=== PATIENT | male | born 1930 | race Caucasian/White ===

== ENCOUNTER 2016-10-20 10:54 | Emergency (ER) | payer MEDICARE, OTHER ==
[2016-10-20 11:28] LABS: BASOPHIL 0.1 % (0-2); HCT 40.6 % (42.0-52.0); HGB 13.3 g/dl (13.2-18.0); LYMPHOCYTE 25.3 % (15-48); MCH 29.8 pg (25.0-31.0); MCHC 32.8 g/dL (32.0-36.0); MPV 12.1 fL (6.0-9.5); NEUTROPHIL 64.6 % (41-80); PLT 181 K/uL (150-400); RBC 4.46 M/uL (4.70-6.00); RDW 13.9 % (11.5-14.0); WBC 6.7 K/uL (4.0-10.5)
[2016-10-20 11:33] LABS: INR 1.08 (0.9-1.2); PROTHROMBIN TIME 13.1 SECONDS (11.4-13.2); PTT 30.8 SECONDS (24.3-32.1)
[2016-10-20 11:46] LABS: POTASSIUM 4.1 mmol/L (3.5-5.1)
== END 2016-10-20 12:40 | disposition home or self-care (01) ==
LOC: FER 10:54 → EDSTATUS 10:55 → FER 12:40 → FIS 15:15
PROVIDERS: Emergency Medicine
DX: I71.3 Abdominal aortic aneurysm, ruptured (principal); Z98.890 Other specified postprocedural states
CPT/HCPCS: 36415; 71010; 80048; 85025; 85610; 85730; 86850; 86900; 86901; 93005; Q9967

== ENCOUNTER 2020-12-12 13:30 | Emergency (ER) | payer MEDICARE, OTHER ==
[2020-12-12] MEDS ORDERED: VALACYCLOVIR1000 MG PO (14:04)
== END 2020-12-12 14:15 | disposition home or self-care (01) ==
LOC: FER 13:30
DX: B02.9 Zoster without complications (principal); Z88.0 Allergy status to penicillin
CPT/HCPCS: 99282

== ENCOUNTER 2021-03-03 12:25 | Inpatient (IN) | payer MEDICARE, OTHER ==
[~2021-03-03] VITALS: Ht 170.2 cm; Wt 57.6 kg
[~2021-03-03 12:25] MED LIST: VALACYCLOVIR1000 MG PO
[2021-03-03 13:18] LABS: BASOPHIL 0.2 % (0-2); EOSINOPHIL 0.1 % (0-7); HCT 43.9 % (42.0-52.0); HGB 15.2 g/dl (13.2-18.0); MCH 30.5 pg (25.0-31.0); MCHC 34.6 g/dL (32.0-36.0); MONOCYTE 3.2 % (0-12); MPV 12.3 fL (6.0-9.5); NEUTROPHIL 87.8 % (41-80); NRBC 0; PLT 181 K/uL (150-400); RBC 4.99 M/uL (4.70-6.00); RDW 13.3 % (11.5-14.0); WBC 9.8 K/uL (4.0-10.5)
[2021-03-03 13:37] LABS: LACTIC ACID 2.9 mmol/L (0.4-1.9)
[2021-03-03 13:44] LABS: CREATININE 1.28 mg/dL (0.67-1.17); POTASSIUM 3.5 mmol/L (3.5-5.1)
[2021-03-03 13:45] LABS: BILIRUBIN - TOTAL 1.7 mg/dL (0.2-1.0); GLOBULIN (CALCULATION) 4.4 g/dL; TOTAL PROTEIN 7.4 g/dL (6.4-8.2)
[2021-03-03 14:19] LABS: INFLUENZA A NAA NEGATIVE (NEGATIVE)
[2021-03-03 14:48] LABS: CORONAVIRUS 2019 SARS-COV-2 POSITIVE (NEGATIVE)
[2021-03-03 16:13] LABS: BILIRUBIN 1+ mg/dL (NEGATIVE); BLOOD TRACE-INTACT Ery/uL (NEGATIVE); CLARITY CLEAR (CLEAR); COLOR YELLOW (YELLOW); GLUCOSE (U) NORMAL (NORMAL); LEUKOCYTES NEGATIVE Leu/uL (NEGATIVE); NITRITE NEGATIVE (NEGATIVE); PROTEIN 1+ mg/dL (NEGATIVE)
[2021-03-03 16:20] LABS: BACTERIA TRACE; SQUAMOUS EPITHELIAL CELLS RARE; URINARY RBC RARE; URINARY WBC RARE
[2021-03-03 16:21] LABS: MUCOUS TRACE
[2021-03-03 16:22] LABS: AMORPHOUS URATES CRYSTALS MODERATE; GRANULAR CASTS TRACE
[2021-03-04 08:27] LABS: ALBUMIN 2.3 g/dL (3.4-5.0); BILIRUBIN - TOTAL 1.3 mg/dL (0.2-1.0); BUN/CREAT RATIO (CALC) 38.9 RATIO; CREATININE 0.9 mg/dL (0.67-1.17); GLOBULIN (CALCULATION) 3.9 g/dL; POTASSIUM 3.9 mmol/L (3.5-5.1); TOTAL PROTEIN 6.2 g/dL (6.4-8.2)
[2021-03-04 10:43] LABS: BASOPHIL 0.1 % (0-2); EOSINOPHIL 0 % (0-7); HCT 40.9 % (42.0-52.0); HGB 14.4 g/dl (13.2-18.0); LYMPHOCYTE 3.7 % (15-48); MCH 30.6 pg (25.0-31.0); MCHC 35.2 g/dL (32.0-36.0); MONOCYTE 2.9 % (0-12); MPV 12.3 fL (6.0-9.5); NEUTROPHIL 92.8 % (41-80); NRBC 0; PLT 185 K/uL (150-400); RDW 13.3 % (11.5-14.0)
[2021-03-04 10:46] LABS: WBC 16.7 K/uL (4.0-10.5)
--- NOTE | 2021-03-06 05:59 | NUR ---
0430- RESP ON UNIT PATIENT OXYGEN STATS 88, OXYGEN INCREASED TO 15 LITERS VIA OXIMIZER.
[2021-03-06 07:01] LABS: BASOPHIL 0.1 % (0-2); EOSINOPHIL 0 % (0-7); HCT 39.2 % (42.0-52.0); HGB 13.6 g/dl (13.2-18.0); LYMPHOCYTE 9.7 % (15-48); MCH 30.4 pg (25.0-31.0); MCHC 34.7 g/dL (32.0-36.0); MCV 87.5 fL (78.0-100.0); MONOCYTE 1.2 % (0-12); MPV 12.3 fL (6.0-9.5); NEUTROPHIL 88.4 % (41-80); NRBC 0; PLT 165 K/uL (150-400); RBC 4.48 M/uL (4.70-6.00); RDW 13.5 % (11.5-14.0)
[2021-03-06 07:19] LABS: WBC 8.7 K/uL (4.0-10.5)
[2021-03-06 07:53] LABS: BUN/CREAT RATIO (CALC) 44.3 RATIO; CREATININE 0.88 mg/dL (0.67-1.17); POTASSIUM 3.7 mmol/L (3.5-5.1)
--- NOTE | 2021-03-06 16:04 | NUR ---
INFORMED DAUGHTER CRYSTAL OF TRANSFER TO TCU AND PATIENT'S CONDITION
[2021-03-08 06:01] LABS: BASOPHIL 0.2 % (0-2); EOSINOPHIL 0 % (0-7); HCT 39.3 % (42.0-52.0); HGB 13.6 g/dl (13.2-18.0); LYMPHOCYTE 9.2 % (15-48); MCH 30.2 pg (25.0-31.0); MCHC 34.6 g/dL (32.0-36.0); MCV 87.3 fL (78.0-100.0); MPV 12.8 fL (6.0-9.5); NEUTROPHIL 86.4 % (41-80); NRBC 0; PLT 246 K/uL (150-400); RDW 13.7 % (11.5-14.0); WBC 12.2 K/uL (4.0-10.5)
[2021-03-08 07:23] LABS: BUN/CREAT RATIO (CALC) 42.6 RATIO; CREATININE 1.01 mg/dL (0.67-1.17); POTASSIUM 3.6 mmol/L (3.5-5.1)
[2021-03-09 05:57] LABS: BASOPHIL 0.1 % (0-2); EOSINOPHIL 0 % (0-7); HCT 40.2 % (42.0-52.0); HGB 13.8 g/dl (13.2-18.0); LYMPHOCYTE 7.4 % (15-48); MCH 30.3 pg (25.0-31.0); MCHC 34.3 g/dL (32.0-36.0); MCV 88.2 fL (78.0-100.0); MONOCYTE 4.2 % (0-12); MPV 12.4 fL (6.0-9.5); NEUTROPHIL 86.8 % (41-80); NRBC 0; PLT 303 K/uL (150-400); RBC 4.56 M/uL (4.70-6.00); WBC 11.6 K/uL (4.0-10.5)
[2021-03-09 06:55] LABS: BUN/CREAT RATIO (CALC) 38.6 RATIO; CREATININE 1.01 mg/dL (0.67-1.17)
--- NOTE | 2021-03-09 18:08 | NUR ---
1707 DR BHATIA NOTIFED THAT PATIENT WAS SITTING SQUATTED AGAINST WALL WHEN COMING INTO ROOM TO DO ROUNDS, PT HAS BEEN CONFUSED ALL DAY PULLING AT OXYGEN, PULSE OX AND HEART MONITOR. AFTER PT WAS SEEN ON FLOOR, DR BHATIA STATED THAT THE PATIENT COULD HAVE A SITTER. LADARIUS CAZARES NOTIFIED, FANTASMA RN WAS BROUGHT INTO ROOM TO SIT
[2021-03-10 05:39] LABS: BASOPHIL 0.2 % (0-2); EOSINOPHIL 0 % (0-7); HCT 38.6 % (42.0-52.0); HGB 13.1 g/dl (13.2-18.0); LYMPHOCYTE 8.3 % (15-48); MCH 30.5 pg (25.0-31.0); MCHC 33.9 g/dL (32.0-36.0); MONOCYTE 5.7 % (0-12); MPV 12.6 fL (6.0-9.5); NEUTROPHIL 83.3 % (41-80); NRBC 0; PLT 301 K/uL (150-400); RBC 4.29 M/uL (4.70-6.00); RDW 14.1 % (11.5-14.0); WBC 11.3 K/uL (4.0-10.5)
[2021-03-10 06:44] LABS: BUN/CREAT RATIO (CALC) 34.4 RATIO; C-REACTIVE PROTEIN 3.3 mg/dL (<=0.90); CREATININE 0.93 mg/dL (0.67-1.17); POTASSIUM 4.1 mmol/L (3.5-5.1)
[2021-03-10 06:56] LABS: MAGNESIUM 2.2 mg/dL (1.8-2.4)
--- NOTE | 2021-03-10 21:04 | NUR ---
HAND OFF REPORT GIVEN TO CHULA GILLESPIE
[2021-03-11 07:41] LABS: BUN/CREAT RATIO (CALC) 35.1 RATIO; C-REACTIVE PROTEIN 2.5 mg/dL (<=0.90); CREATININE 0.97 mg/dL (0.67-1.17); POTASSIUM 4.7 mmol/L (3.5-5.1)
[2021-03-11 07:46] LABS: BASOPHIL 0.1 % (0-2); EOSINOPHIL 0 % (0-7); HCT 43.3 % (42.0-52.0); HGB 14.3 g/dl (13.2-18.0); MCV 90.8 fL (78.0-100.0); MONOCYTE 2.9 % (0-12); MPV 12.3 fL (6.0-9.5); NRBC 0; PLT 354 K/uL (150-400); RBC 4.77 M/uL (4.70-6.00); RDW 14.2 % (11.5-14.0); WBC 16.8 K/uL (4.0-10.5)
--- NOTE | 2021-03-11 14:37 | NUR ---
03/11/21 Per telephone conversation with Mohini Lloyd, daughter, : Mr. Ervin lives at home with his son Golden Ervin. He did not use any DME and was able to prepare his own breakfast. Ms. Lloyd states that Mr. Ervin has some memory loss without confusion. The discharge plan is for him to return home. They chose [facility] for any DME needs and [facility] for HH needs.
[2021-03-13 06:46] LABS: BASOPHIL 0.1 % (0-2); EOSINOPHIL 0 % (0-7); HCT 42.1 % (42.0-52.0); LYMPHOCYTE 3.9 % (15-48); MCHC 33.3 g/dL (32.0-36.0); MCV 90.3 fL (78.0-100.0); MONOCYTE 1.8 % (0-12); MPV 11.8 fL (6.0-9.5); NRBC 0; PLT 301 K/uL (150-400); RBC 4.66 M/uL (4.70-6.00); RDW 14.2 % (11.5-14.0); WBC 11.4 K/uL (4.0-10.5)
[2021-03-13 06:51] LABS: NEUTROPHIL 93.8 % (41-80)
[2021-03-13 08:58] LABS: CREATININE 0.92 mg/dL (0.67-1.17); POTASSIUM 4.7 mmol/L (3.5-5.1)
[2021-03-13 08:59] LABS: C-REACTIVE PROTEIN 6.4 mg/dL (<=0.90)
[2021-03-13 11:02] LABS: MAGNESIUM 2.1 mg/dL (1.8-2.4)
[2021-03-14 06:42] LABS: POTASSIUM 4.5 mmol/L (3.5-5.1)
[2021-03-15 07:06] LABS: BUN/CREAT RATIO (CALC) 46.3 RATIO; CREATININE 1.08 mg/dL (0.67-1.17); POTASSIUM 4.9 mmol/L (3.5-5.1)
--- NOTE | 2021-03-19 14:57 | NUR ---
03/19/21 Leta Ervin, daughter of [place], [place] ([phone]) requested to know the treatment options. A return call was made after discussing with Dr. Harris. Options were discussed: home with Hospice, comfort care or continuing current treatment. At this time, family wishes to continue treatment.
[2021-03-20 06:36] LABS: BASOPHIL 0.9 % (0-2); EOSINOPHIL 1.6 % (0-7); HCT 45.3 % (42.0-52.0); HGB 14.5 g/dl (13.2-18.0); LYMPHOCYTE 10.7 % (15-48); MCH 29.8 pg (25.0-31.0); MONOCYTE 1.9 % (0-12); MPV 12.3 fL (6.0-9.5); NEUTROPHIL 84.7 % (41-80); NRBC 0; PLT 211 K/uL (150-400); RBC 4.87 M/uL (4.70-6.00); WBC 4.3 K/uL (4.0-10.5)
[2021-03-20 07:45] LABS: BUN/CREAT RATIO (CALC) 55.7 RATIO; CREATININE 0.97 mg/dL (0.67-1.17); POTASSIUM 4.5 mmol/L (3.5-5.1)
--- NOTE | 2021-03-20 14:34 | NUR ---
NOTIFIED OF [facility]. NO NEW ORDERS GIVEN
[2021-03-22 06:24] LABS: EOSINOPHIL 3.1 % (0-7); HCT 43.8 % (42.0-52.0); HGB 13.7 g/dl (13.2-18.0); LYMPHOCYTE 8.2 % (15-48); MCH 29.3 pg (25.0-31.0); MCHC 31.3 g/dL (32.0-36.0); MCV 93.8 fL (78.0-100.0); MONOCYTE 1.3 % (0-12); MPV 12.8 fL (6.0-9.5); NEUTROPHIL 85.6 % (41-80); NRBC 0.6; PLT 144 K/uL (150-400); RBC 4.67 M/uL (4.70-6.00); RDW 15.3 % (11.5-14.0)
[2021-03-22 06:28] LABS: WBC 4.8 K/uL (4.0-10.5)
[2021-03-22 07:13] LABS: ALBUMIN 1.6 g/dL (3.4-5.0); BILIRUBIN - TOTAL 1.1 mg/dL (0.2-1.0); BUN/CREAT RATIO (CALC) 46.8 RATIO; CREATININE 1.09 mg/dL (0.67-1.17); GLOBULIN (CALCULATION) 4.2 g/dL; MAGNESIUM 2.5 mg/dL (1.8-2.4); PHOSPHORUS 2.3 mg/dL (2.6-4.7); POTASSIUM 4.6 mmol/L (3.5-5.1); TOTAL PROTEIN 5.8 g/dL (6.4-8.2)
--- NOTE | 2021-03-22 10:26 | NUR ---
03/22/21 On 03/19, Golden Ervin, son reported that they are interested in taking Mr. Ervin home with with Hospice the week of 03/22. A list a sitters was provided per Mr. Ervin request. On 03/20, Golden Ervin, said the family wishes for Mr. Ervin to remain in the hospital.- Family members have been vascilating re: taking patient home with Hospice vs staying in the hospital with the current plan. Leta Brewer, daughter, , has been appointed to be the spoke's person for the family per Golden MAN. Today, Ms. Brewer, states that they wish for Mr. Ervin to remain in the hospital.
--- NOTE | 2021-03-22 18:58 | NUR ---
1654 DOBHOFF TUBE WAS PLACED IN THE RIGHT NARE BY DR. LEONARD AT THE BEDSIDE AND WAS SECURE TO THE NOSE AND CXR WAS ORDERED TO CHECK PLACEMENT BEFORE THE WIRE CAN BE REMOVED. TOLERATED THE PROCEDURE WITHOUT MUCH STRESS. 1830 CXR HAS BEEN DONE AWAITING THE RESULTS TO CHECK PLACEMENT. 1900 REPORT WAS GIVEN TO GRECIA BUCHANAN RN TO MONITOR FOR THE REPORT OF THE CXR RESULTS BEFORE REMOVING THE WIRE FOR THE TUBE.
[2021-03-23 06:27] LABS: BASOPHIL 1.4 % (0-2); HCT 43.6 % (42.0-52.0); HGB 13.9 g/dl (13.2-18.0); MCH 30.2 pg (25.0-31.0); MCHC 31.9 g/dL (32.0-36.0); MCV 94.6 fL (78.0-100.0); MONOCYTE 1.4 % (0-12); MPV 13.5 fL (6.0-9.5); NEUTROPHIL 81.8 % (41-80); NRBC 1.9; PLT 137 K/uL (150-400); RBC 4.61 M/uL (4.70-6.00); RDW 15.3 % (11.5-14.0); WBC 3.6 K/uL (4.0-10.5)
[2021-03-23 06:48] LABS: BUN/CREAT RATIO (CALC) 44.1 RATIO; CREATININE 1.11 mg/dL (0.67-1.17); MAGNESIUM 2.4 mg/dL (1.8-2.4); POTASSIUM 4.4 mmol/L (3.5-5.1)
[2021-03-24 06:43] LABS: CREATININE 1.39 mg/dL (0.67-1.17); POTASSIUM 4.7 mmol/L (3.5-5.1)
[2021-03-24 06:44] LABS: HCT 42.7 % (42.0-52.0); MCH 30.8 pg (25.0-31.0); MCHC 32.8 g/dL (32.0-36.0); MCV 93.8 fL (78.0-100.0); MPV 13.5 fL (6.0-9.5); RBC 4.55 M/uL (4.70-6.00); RDW 15.5 % (11.5-14.0); WBC 3.2 K/uL (4.0-10.5)
[2021-03-24 14:25] LABS: BUN/CREAT RATIO (CALC) 39.7 RATIO; CREATININE 1.36 mg/dL (0.67-1.17); POTASSIUM 4.4 mmol/L (3.5-5.1)
[2021-03-25 09:23] LABS: BASOPHIL 1.2 % (0-2); EOSINOPHIL 2.8 % (0-7); HCT 37.3 % (42.0-52.0); HGB 12.1 g/dl (13.2-18.0); MCH 30.6 pg (25.0-31.0); MCHC 32.4 g/dL (32.0-36.0); MCV 94.2 fL (78.0-100.0); MONOCYTE 1.2 % (0-12); NEUTROPHIL 85.9 % (41-80); NRBC 1.9; PLT 67 K/uL (150-400); RBC 3.96 M/uL (4.70-6.00); RDW 15.7 % (11.5-14.0)
[2021-03-25 09:24] LABS: WBC 4.3 K/uL (4.0-10.5)
[2021-03-25 09:39] LABS: BILIRUBIN - TOTAL 0.7 mg/dL (0.2-1.0); BUN/CREAT RATIO (CALC) 44.2 RATIO; CREATININE 1.13 mg/dL (0.67-1.17); GLOBULIN (CALCULATION) 3.3 g/dL; POTASSIUM 4.2 mmol/L (3.5-5.1); TOTAL PROTEIN 4.3 g/dL (6.4-8.2)
--- NOTE | 2021-03-25 18:09 | NUR ---
Rapid response called, this RN to room with primary RN and other H[facility] IN[facility] SPECIALIST responders. Patient not responding to painful stimuli, patient on vapotherm high flow oxygen at 100%, o2 sats upon arrival to room in the 60's, Dr. Dalal to the patients bedside and instructed to prepare for intubation. RT at head of bed, using ambu-bag to provide oxygenation. Per MD order, 10mg IVP Etomidate given, followed by 80 succ IVP. First attempt for intubation not successful. MD utilized glidescope for second intubation attempt, patient intubated at 1645 with 7.0 ET Tube, positive CO2 color change, and bilateral breath sounds noted. Called for STAT CXR. See [facility]IST protocol for more details and vital signs.
== END 2021-03-25 22:50 | disposition expired | DRG 208 ==
LOC: FER 12:25 → FMS 15:14 → FTCU 03-06 12:38 → FMS 03-10 23:08 → FTCU 03-23 21:32 → FICU 03-25 17:06
PROVIDERS: Internal Medicine; Nurse Practitioner; Nurse Practitioner Family; ADMIT Internal Medicine
PROC: XW033E5 Introduction of Remdesivir Anti-infective into Peripheral Vein, Percutaneous Approach, New Technology Group 5 (ICD-10-PCS; 2021-03-03)
PROC: 8E0ZXY6 Isolation (ICD-10-PCS; 2021-03-03)
PROC: 3E03329 Introduction of Other Anti-infective into Peripheral Vein, Percutaneous Approach (ICD-10-PCS; 2021-03-03)
PROC: XW0DXM6 Introduction of Baricitinib into Mouth and Pharynx, External Approach, New Technology Group 6 (ICD-10-PCS; 2021-03-05)
PROC: 5A0955A Assistance with Respiratory Ventilation, Greater than 96 Consecutive Hours, High Flow/Velocity Cannula (ICD-10-PCS; 2021-03-06)
PROC: 5A0955A Assistance with Respiratory Ventilation, Greater than 96 Consecutive Hours, High Flow/Velocity Cannula (ICD-10-PCS; 2021-03-19)
PROC: 0DH67UZ Insertion of Feeding Device into Stomach, Via Natural or Artificial Opening (ICD-10-PCS; 2021-03-23)
PROC: 3E0G76Z Introduction of Nutritional Substance into Upper GI, Via Natural or Artificial Opening (ICD-10-PCS; 2021-03-23)
PROC: 0BH17EZ Insertion of Endotracheal Airway into Trachea, Via Natural or Artificial Opening (ICD-10-PCS; principal; 2021-03-25)
PROC: 5A1935Z Respiratory Ventilation, Less than 24 Consecutive Hours (ICD-10-PCS; 2021-03-25)
DX: U07.1 COVID-19 (principal); A41.9 Sepsis, unspecified organism; J12.82 Pneumonia due to coronavirus disease 2019; J96.01 Acute respiratory failure with hypoxia; J15.9 Unspecified bacterial pneumonia; E43 Unspecified severe protein-calorie malnutrition; G92.8 Other toxic encephalopathy; R65.21 Severe sepsis with septic shock; N17.9 Acute kidney failure, unspecified; J93.9 Pneumothorax, unspecified; B37.0 Candidal stomatitis; E87.1 Hypo-osmolality and hyponatremia; E87.0 Hyperosmolality and hypernatremia; K21.9 Gastro-esophageal reflux disease without esophagitis; D49.512 Neoplasm of unspecified behavior of left kidney; R13.10 Dysphagia, unspecified; D69.6 Thrombocytopenia, unspecified; E86.0 Dehydration; F03.90 Unspecified dementia, unspecified severity, without behavioral disturbance, psychotic disturbance, mood disturbance, and anxiety; I71.4 Abdominal aortic aneurysm, without rupture; I46.9 Cardiac arrest, cause unspecified; T38.0X5A Adverse effect of glucocorticoids and synthetic analogues, initial encounter; Z88.0 Allergy status to penicillin; Z98.890 Other specified postprocedural states; Z87.442 Personal history of urinary calculi; Z98.41 Cataract extraction status, right eye; Z98.42 Cataract extraction status, left eye; Z68.20 Body mass index [BMI] 20.0-20.9, adult
CPT/HCPCS: 31500; 36415; 36600; 71045; 71250; 71275; 74018; 80048; 80053; 81001; 82728; 82803; 82962; 83605; 83735; 84100; 84145; 84484; 85025; 85379; 86140; 87040; 92526; 92950; 93005; 94002; 94640; 97162; 97166; 97530; 97530-GP; 97535; C9399; J0456; J0692; J1100; J1630; J1650; J1956; J2060; J2185; J2270; J2704; J2930; J3010; J3480; J7030; J7040; J7050; J7070; J8540; Q9967; U0002